=== PATIENT | female | born 1935 | race Caucasian/White ===

== ENCOUNTER 2019-11-06 10:45 | Emergency (ER) | payer OTHER ==
[~2019-11-06] VITALS: Ht 165.1 cm; Wt 91.2 kg
[2019-11-06 11:03] VITALS: BP 169/92
== END 2019-11-06 12:14 | disposition home or self-care (01) ==
LOC: ER 10:45
DX: R60.0 Localized edema (principal); M19.90 Unspecified osteoarthritis, unspecified site; E78.5 Hyperlipidemia, unspecified; I10 Essential (primary) hypertension
CPT/HCPCS: 93971

== ENCOUNTER 2025-08-18 23:39 | Inpatient (IN) | payer OTHER, MEDICAID ==
[~2025-08-18] VITALS: Ht 154.9 cm; Wt 72.7 kg
[2025-08-19] VITALS (7 sets, daily range): BP systolic 140–166; BP diastolic 84–96; PULSE 68–88; RESP 14–18; TEMP 98–100.3; O2SAT 93–97
[2025-08-19] MEDS: SODIUM CHLORIDE 0.9% 1,000 ML IV ONE (01:15)
[2025-08-19 01:35] LABS: Hematocrit 35.1 % (36.0-46.0); Hemoglobin 11.6 g/dL (12.2-16.2); Mean Corpuscular Hemoglobin 30.5 pg (28.0-32.0); Mean Corpuscular Volume 92.4 fL (80.0-100.0); Nucleated Red Blood Cells % 0.0 %
[2025-08-19 01:38] LABS: Chloride 105 mmol/L (98-107); Potassium 3.5 mmol/L (3.5-5.1); Sodium 140 mmol/L (136-145)
[2025-08-19 01:39] LABS: Anion Gap 10 (5-15); Calcium 9.3 mg/dL (8.7-10.4); Carbon Dioxide 25 mmol/L (20-31)
[2025-08-19 01:44] LABS: BUN/Creatinine Ratio 13.8 (10.0-20.0); Blood Urea Nitrogen 11 mg/dL (9-23)
[2025-08-19 01:48] LABS: Glucose 127 mg/dL (74-106)
--- NOTE | 2025-08-19 02:10 | ED.PDOC ---
History of Present Illness HPI Comments 89 y/o F is BIBA for c/c of right hip and knee pain s/p mechanical fall injury. Patient reports on becoming, suddenly, dizzy and falling onto her right side, while entering her garage with the lights off, yesterday evening. Dizziness has since subsided. Denies any chest pain, shortness of breath, or further acute symptoms. REVIEW OF SYSTEMS: General: No fever, no chills, or fatigue HEENT: No sore throat, no earache, no congestion, no neck pain. Cardiac: No chest pain. No palpitations. Lungs: No shortness of breath, no cough. GI: No nausea, no vomiting, no diarrhea, no constipation, no abdominal pain : No dysuria, frequency, or urgency. No hematuria. Musculoskeletal: Right hip and knee pain, no joint swelling, no extremity edema. Skin: No rash, no itching. Neuro: No headache, no dizziness, no weakness PHYSICAL EXAM: General: Awake, alert and oriented. No acute distress. Skin: Skin in warm, dry and intact. Appropriate color for ethnicity. HEENT: The head is normocephalic and atraumatic. Conjunctivae are clear without exudates or hemorrhage. Sclera is non-icteric. EOM are intact. No signs of nystagmus. Eyelids are normal in appearance without swelling or lesions. Oral mucosa is pink and moist Neck: The neck is supple with normal range of motion. No JVD. Cardiac: Heart rate and rhythm are normal. No murmurs, gallops, or rubs are auscultated. Respiratory: No signs of respiratory distress. Lung sounds are clear in all lobes bilaterally without rales, rhonchi, or wheezes. Abdominal: Abdomen is soft, non-tender without distention, guarding or rigidity. Bowel sounds are present and normoactive in all four quadrants. Extremities: Right hip and knee tenderness. She is unable to provide leg onto exam bed. Remaining upper and lower extremities are atraumatic in appearance without deformity or edema. Neurological: The patient is awake, alert and oriented to person, place, and time with normal speech. Speech is clear. There is no facial asymmetry. Psychiatric: Appropriate mood and affect. Good judgement and insight. Chief Complaint: Fall Injury Time Seen by MD: 01:00 Primary Care Provider: CECILLE Reviewed Notes: Nurses Notes, Chassis Wirer Notes, Medications, Allergies Allergies: Coded Allergies: NO KNOWN ALLERGIES (Unverified , 11/06/19) Information Source: Patient, Emergency Med Personnel Mode of Arrival: EMS Severity: Moderate Timing: Hours Duration: Since onset Prehospital treatment: 12 Lead EKG, Accucheck, Marine Insurance Claim Examiner Past Medical History PAST MEDICAL HISTORY: Arthritis, High Lipids, HTN Surgical History: Cholecystectomy, Hysterectomy, Tonsillectomy LUMP ROLLER History: No Pertinent LUMP ROLLER History Family History Family History: Reviewed,noncontributory to illness Social History Smoker: Non-Smoker Alcohol: Denies ETOH Use Drugs: Denies Drug Use Lives In: Home Was a procedure done? Was a procedure done?: No Differential Dx Considerations may include: Fractures, contusions, sprain, musculoskeletal pain, neurovascular injury, among others X-Ray, Labs, Meds, VS Vital Signs Date Time Temp Pulse Resp B/P (MAP) Pulse Ox O2 Delivery O2 Flow Rate FiO2 08/18/25 23:54 98.6 75 18 165/89 95 98.6 Lab Test 08/19/25 02:05 08/19/25 01:18 Range/Units Troponin I High Sensitivity 7 6 </=34 ng/L White Blood Count 11.8 H 4.4-10.8 10^3/uL Red Blood Count 3.79 L 4.0-5.20 10^6/uL Hemoglobin 11.6 L 12.2-16.2 g/dL Hematocrit 35.1 L 36.0-46.0 % Mean Corpuscular Volume 92.4 80.0-100.0 fL Mean Corpuscular Hemoglobin 30.5 28.0-32.0 pg Mean Corpuscular Hemoglobin Concent 33.0 32.0-36.0 g/dL Red Cell Distribution Width 15.2 H 11.8-14.3 % Platelet Count 152 140-450 10^3/uL Mean Platelet Volume 8.4 6.9-10.8 fL Neutrophils (%) (Auto) 87.3 H 37.0-80.0 % Lymphocytes (%) (Auto) 6.7 L 10.0-50.0 % Monocytes (%) (Auto) 5.8 0.0-12.0 % Eosinophils (%) (Auto) 0.1 0.0-7.0 % Basophils (%) (Auto) 0.1 0.0-2.0 % Neutrophils # (Auto) 10.3 H 1.6-8.6 10 ^3/uL Lymphocytes # (Auto) 0.8 0.4-5.4 10 ^3/uL Monocytes # (Auto) 0.7 0-1.3 10 ^3/uL Eosinophils # (Auto) 0 0-0.8 10 ^3/uL Basophils # (Auto) 0 0-0.2 10 ^3/uL Nucleated Red Blood Cells 0.0 % Sodium Level 140 136-145 mmol/L Potassium Level 3.5 3.5-5.1 mmol/L Chloride Level 105 98-107 mmol/L Carbon Dioxide Level 25 20-31 mmol/L Anion Gap 10 5-15 Blood Urea Nitrogen 11 9-23 mg/dL Creatinine 0.80 0.550-1.02 mg/dL Glomerular Filtration Rate Calc 71 >90 mL/min BUN/Creatinine Ratio 13.8 10.0-20.0 Serum Glucose 127 H 74-106 mg/dL Calcium Level 9.3 8.7-10.4 mg/dL B-Type Natriuretic Peptide 92.18 0-100 pg/mL Current Medications Medications (Trade) Dose Ordered Sig/Cristin Route Start Time Stop Time Status Last Admin Sodium Chloride 1,000 ml @ 1,000 mls/hr Q1H ONCE IV 08/19/25 01:15 08/19/25 02:14 DC 08/19/25 01:15 Tramadol HCl (Ultram) 50 mg ONCE ONCE PO 08/19/25 01:15 08/19/25 01:16 DC 08/19/25 01:15 Time of 1ST Reevaluation: 01:30 Reevaluation 1ST: Unchanged Patient Education/Counseling: Treatment Family Education/Counseling: No Family Present SEPSIS Sepsis Screen Date sepsis recognized/suspect: Aug 18, 2025 Time Sepsis recognized/suspect: 2355 Recent Procedure: No On Antibiotic Therapy: No Respiratory Rate >20: No Heart Rate >90: No Temp<36 C (96.8 F) or >38.3 C: No SBP <90 or MAP <65 mmHG: No New Acute Mental Status Change: No Is the patient on CPAP, BIPAP,: No Physician Orders Electrocardigram (08/19/25 01:05) Marine Insurance Claim Examiner (08/19/25 ) Orthostatic Vital Signs (08/19/25 ) Saline Lock (08/19/25 01:05) Fall Precautions Initiated (08/19/25 01:05) Troponin-I Hs (08/19/25 04:05) R Hip Complete Xray (08/19/25 01:05) R Knee 2v Xray (08/19/25 01:05) Vital Signs Date Time Temp Pulse Resp B/P (MAP) Pulse Ox O2 Delivery O2 Flow Rate FiO2 08/18/25 23:54 98.6 75 18 165/89 95 98.6 Laboratory Tests Test 08/19/25 01:18 White Blood Count 11.8 10^3/uL (4.4-10.8) H Medications Medications Dose Ordered Sig/Cristin Route Start Time Stop Time Status Last Admin Dose Admin Sodium Chloride 1,000 ml @ 1,000 mls/hr Q1H ONCE IV 08/19/25 01:15 08/19/25 02:14 DC 08/19/25 01:15 Tramadol HCl 50 mg ONCE ONCE PO 08/19/25 01:15 08/19/25 01:16 DC 08/19/25 01:15 Departure 1 Departure Time of Disposition: 03:14 Impression: Primary Impression: Fracture of right hip Disposition: ADMITTED INPATIENT Condition: Stable Comments MDM: Patient admitted to hospitalist service for further treatment, evaluation and monitoring. Extensive evaluation was performed in attempt to identify or rule out: (See differential diagnosis section) The following tests were ordered, and results were reviewed by me and discussed with patient: (See diagnostic results section) The following test were independently interpreted by me: N/A I reviewed and agreed with the following test results read by other providers: Right knee and hip x-ray I reviewed the following notes from the pt's past medical encounters: N/A Additional information was gathered from interviewing the following independent historians: EMS personnel Decision regarding hospitalization or escalation of hospital level of care: Risks and benefits of admission for further treatment of patient's condition was considered however due to patient's stable condition patient will be discharged to follow up closely or return to care for worsening of condition or inability t o follow up. Critical Care Note Critical Care Time?: No Stability Stability form required: No Heart Score Heart Score: Heart Score Response (Comments) Value History N/A 0 EKG N/A 0 Age N/A 0 Risk Factors N/A 0 Troponin N/A 0 Total 0 I personally scribed for LATONIA MARTINEZ MD ([email or web address]) on 08/19/25 at 02:10. Electronically submitted by Will Hansen ([email or web address]). LATONIA MARTINEZ MD Aug 19, 2025 02:10
--- NOTE | 2025-08-19 03:19 | DVH ---
CLINICAL INDICATION: Right hip pain after fall TECHNIQUE: 2 views XY R HIP COMPLETE XRAY Comparison: None FINDINGS: Mildly comminuted and displaced intertrochanteric fracture with varus angulation and proximal migrati on. Associated soft tissue swelling. No dislocation. Moderate to severe osteoarthrosis. Osteopenia. IMPRESSION: 1. Acute intertrochanteric right femur fracture.
--- NOTE | 2025-08-19 03:20 | DVH ---
CLINICAL INDICATION: Right knee pain after fall TECHNIQUE: 2 views XY R KNEE 2V XRAY Comparison: None FINDINGS: No acute fracture or joint malalignment. Diffuse osteopenia. Severe tricompartmental osteoarthrosis most pronounced in the medial compartment. Small joint effusion with large ossified joint body. Ante rior soft tissue swelling suspected. IMPRESSION: 1. No acute osseous finding of the right knee.
[2025-08-19 03:59] LABS: Urine Protein, UAD Negative (Negative)
[2025-08-19] MEDS ORDERED: ONDANSETRON HCL 4 MG/2 ML VIAL IV PRN (04:00)
[2025-08-19] MEDS ORDERED: DOCUSATE SOD 100 MG CAP PO PRN (04:00)
[2025-08-19] MEDS ORDERED: hydrALAZINE HCL 20 MG/ML VL IV PRN (04:00)
[2025-08-19] MEDS ORDERED: NITROGLYCERIN 0.4 MG SL TAB SL PRN (04:00)
[2025-08-19 04:11] LABS: INR 1.02 (0.9-1.15); Prothrombin Time 10.8 sec (9.3-11.8)
--- NOTE | 2025-08-19 04:59 | DVH ---
CHEST RADIOGRAPH Indication: Dizziness Technique: 1 view Comparison: None FINDINGS: Lines and Tubes: None. Lungs/Pleura: No acute consolidation or pleural abnormality. Mild scarring/ atelectasis in the left lower lung. The appearance of the right sulcus appears related to an elevated hemidiaphragm. Cardiomediastinum: Normal heart size. Other: No acute osseous abnormality. Advanced degenerative changes of the shoulders. IMPRESSION: 1. No acute cardiopulmonary abnormality.
[2025-08-19] MEDS: SODIUM CHLORIDE 0.9% 1,000 ML IV SCH (05:11)
--- NOTE | 2025-08-19 07:06 | ECG ---
[facility] Test Date: 2025-08-19 Test Time: 07:00:34 Pat Name: DAWN GARLAND Department: [facility] ED Patient ID: [id number] Room: 0249 Gender: F Transit Operator: SUSANNA : 1935 Requested By: LATONIA MARTINEZ Order Number: [id number] Reading MD: Oh King Measurements Intervals [place] Rate: 73 P: 3 CA: 154 QRS: -20 QRSD: 136 T: -20 QT: 518 QTc: 571 Interpretive Statements Sinus rhythm Left ventricular hypertrophy Probable anterior infarct, age indeterminate Prolonged QT interval Electronically Signed On 08-19-2025 15:18:54 PDT by Oh King Please click the below link to view image of tracing.
--- NOTE | 2025-08-19 08:22 | DVHHP ---
ADMIT DATE: 08/19/2025 CHIEF COMPLAINT: Coming in after having a mechanical fall with hip pain. HISTORY OF PRESENT ILLNESS: This is an 89-year-old female with significant past medical history for essential hypertension, hyperlipidemia and COPD who presents to the Emergency Room after sustaining a fall at home with a complaint of right hip pain. The patient apparently was letting her dog out from the kitchen into the garage to go to the bathroom. The patient did not turn on the lights. Once stepping into the garage, the patient felt slightly lightheaded, lost her balance and fell to the floor. The patient at that point was unable to get up, was fortunate that her son and grandson were at home and helped her up. EMS was called and the patient was brought in. The patient was found to have right hip intertrochanteric fracture. The patient says that the pain kind of radiates from the knee up into the hip area on the right side. The patient otherwise denies any fevers or chills, chest pain or shortness of breath, cough or phlegm, diarrhea or constipation, bloody or tarry stools, any urinary frequency, urgency or burning sensation. PAST MEDICAL HISTORY: Essential hypertension, hyperlipidemia and COPD. PAST SURGICAL HISTORY: Hysterectomy, cholecystectomy. SOCIAL HISTORY: No tobacco, no alcohol, no illicit drugs. MEDICATIONS AT HOME: Per medical reconciliation. MEDICATION ALLERGIES: No known drug allergies. REVIEW OF SYSTEMS: A 10-point review of systems was covered with the patient and was negative with the exception to what was presented in the history of present illness. PHYSICAL EXAMINATION: VITAL SIGNS: Temperature 98.6, pulse rate of 75, respiratory rate of 18, blood pressure 165/89, pulse oximetry about 95% on room air. GENERAL: Seems to be alert and oriented x4, not in acute distress female lying in bed. HEENT: Normocephalic, atraumatic. Extraocular muscles are intact. Pupils are equally round and reactive to light and accommodations. Mucous membranes are moist. CARDIOVASCULAR: S1, S2 positive. Regular rate and rhythm. No rubs, gallops or murmurs. LUNGS: Seems to be clear to auscultation bilaterally. No wheezing, rhonchi, or rales. ABDOMEN: Seems to be soft, nontender, nondistended. Positive bowel sounds. No guarding, no rebound. EXTREMITIES: Lower extremities: No lower extremity edema, clubbing, or cyanosis. The patient's right leg seems to be shortened and rotated outwards. NEUROLOGIC: Cranial nerve testing 2-12 overall seems to be intact. LABORATORY WORKUP: Shows a white count of 11.8, H and H of 11.6 and 35.1, platelet count of 152,000, neutrophils shift of 87.3. INR of 1.02. Sodium 140, potassium 3.5, chloride 105, carbon dioxide 25, anion gap of 10, BUN of 11, creatinine of 0.80, glucose of 127, calcium 9.3. BNP of 92.18, troponins of 6, 7, and 8. Urinalysis was negative for nitrites, negative for leukocyte esterase, less than 1 wbc. IMAGING: Chest x-ray shows no acute cardiopulmonary abnormality. Right knee x-ray shows no acute osseous findings of the right knee and right hip x-ray was also completed. It shows mild comminuted and displaced intertrochanteric fracture with varus angulation and proximal migration associated with soft tissue swelling. No dislocation. [id number] osteoarthrosis and osteopenia present. DIAGNOSES: * Right femoral intertrochanteric fracture. SECONDARY DIAGNOSES: * Essential hypertension. * COPD. PLAN: The patient will be admitted to Medical-Surgical floor for continuous monitoring and pain control. Consultation with Orthopedic Surgery has been requested by Dr. John Wiggins. Consultation with Cardiology, Dr. Franklin Frazier, Cardiology, has been also requested for preop clearance. The patient will be maintained n.p.o. at this point in time. IV fluid hydration with normal saline at 100 mL an hour has been ordered for the patient. Pain control with Dilaudid 0.25 IV p.r.n. q. 6 hours for severe pain, hydralazine 10 mg IV p.r.n. q. 6 hours for SBPs greater than 150. The patient to have Zofran 4 mg IV p.r.n. for nausea and vomiting. The patient to have daily CBC and BMPs. The patient is to have SCDs to bilateral lower extremities for DVT prophylaxis. Fall risk precautions have been implemented. The patient is a full code. Further recommendations will depend on the patient's hospital progression. Kendall Garner MD LM/ANTHONY/ED TID: [id number] RECEIPT: [id number] MTDD
[2025-08-19] MEDS: ACETAMINOPHEN 500 MG TAB or CAP PO ONE (08:29)
--- NOTE | 2025-08-19 12:13 | DVHINCON2 ---
Consult Note Consult Consult Note History of Present Illness Ms. Teresa Rush was seen today in the emergency department following a ground- level fall at home. The patient was brought to the ER for evaluation of right hip pain and inability to ambulate/WB right hip. Emergency room evaluation included radiographs that demonstrated a right hip fracture. Ortho was consulted. No other Joint pain reported by patient. No LOC, N/V reported by patient. Hx of HTN. Reported. No cancers, DM2, Smoking reported. Last meal 1400 on 08/18/2025(yesterday). Physical Examination General: Awake, alert, in no acute distress. Right Lower Extremity: No open skin lesion, erythema edema, warmth, swelling RLE. Mild Shortening and external rotation noted. Tenderness to palpation over the groin region. Gentle knee range of motion tolerated; no erythema, edema, or open skin lesions observed.MJL TTP(Chronic per pt) Neurovascular status grossly intact distally. Left Lower Extremity: No deformity or tenderness. Pain: Well controlled at this time. Past Medical History Hypertension well controlled on medication. No history of diabetes, anticoagulant use, smoking, cardiac disease, or pulmonary disease as reported by patient. Right hip Xray: Mildly comminuted and displaced intertrochanteric fracture with varus angulation and proximal migration. Associated soft tissue swelling. No dislocation. Moderate to severe osteoarthrosis. Osteopenia. Right knee xray: Severe tricompartmental osteoarthrosis most pronounced in the medial compartment. Small joint effusion with large ossified joint body. Anterior soft tissue swelling suspected. Assessment Right hip intertrochanteric fracture following ground-level fall. Chronic right knee pain, stable. Plan Discussed with patient and obtained consent for surgery. Risks benefits options and alternatives reviewed in depth. Risks include but not exclusive to bleeding infection nerve injury hardware failure nonunion malunion chronic pain blood clots cardiac and pulmonay complications amputation and . Patient understands the morbidity and mortality of hip fractures in the elderly and wishes to proceed with surgery. Patient is currently NPO. Planned procedure: Open reduction internal fixation of right hip fracture Case discussed with information security analyst surgeon , Surgery scheduled with Dr. Wiggins. Continue to monitor vitals and pain control preoperatively. All questions answered Pt and bedside nurse Agrees with above plan Plan discussed with: Patient, Other (bedside nurse) Visit Coding Surgery Date of Service if different f: Aug 19, 2025 Billing Provider: LYNN FELICIANO PAC Surgery Visit Codes: 08662 - INP CONSULT <55 MIN LYNN FELICIANO PAC Aug 19, 2025 12:13 SHERRY WIGGINS MD Aug 20, 2025 06:38
--- NOTE | 2025-08-19 12:27 | DVHINCON2 ---
Date of service: Aug 19, 2025 Referring Physician Litzy Reason for Consultation Cardiac clearance History of Present Illness This is a 89 year old female with a PMH of essential hypertension, hyperlipidemia and COPD who presented to the ED by EMS after sustaining a fall at home with a complaint of right hip pain. The patient apparently was letting her dog out from the kitchen into the garage to go to the bathroom. The patient did not turn on the lights. Once stepping into the garage, the patient felt slightly lightheaded, lost her balance and fell to the floor. The patient at that point was unable to get up. WBC 11.8, platelet count of 152,000, neutrophils shift of 87.3. INR of 1.02. Sodium 140, potassium 3.5, chloride 105, carbon dioxide 25, anion gap of 10, calcium 9.3. BNP 92.18, troponins of 6, 7, and 8. Urinalysis was negative for nitrites, negative for leukocyte esterase, less than 1 WBC Chest x-ray shows NAD. Right knee x-ray shows no acute osseous findings of the right knee. Right hip x-ray shows mild comminuted and displaced intertrochanteric fracture with varus angulation and proximal migration associated with soft tissue swelling. No dislocation. [id number] osteoarthrosis and osteopenia present. Patient was admitted to the hospital. I am asked to consult on this patient. Allergies: Coded Allergies: NO KNOWN ALLERGIES (Unverified , 11/06/19) Current Medications Current Medications Medications (Trade) Dose Ordered Sig/Cristin Route PRN Reason Start Time Stop Time Status Last Admin Sodium Chloride 1,000 ml @ 75 mls/hr [id number] IV 08/19/25 04:00 08/19/25 05:11 Ondansetron HCl (Zofran) 4 mg Q4HP PRN IV NAUSEA / VOMITING 08/19/25 04:00 Docusate Sodium (Colace Capsule) 100 mg BIDPRN PRN PO FOR CONSTIPATION 08/19/25 04:00 Nitroglycerin (Ntrostat Sublingual) 0.4 mg Q5MINP PRN SL FOR CHEST PAIN 08/19/25 04:00 Hydralazine HCl (Apresoline Injection) 10 mg Q6HP PRN IV SBP>150 08/19/25 04:00 Hydromorphone HCl (Dilaudid Injection) 0.25 mg Q6HPRN PRN IV SEVERE PAIN (7-10 PAIN SCALE) 08/19/25 04:00 Review of Systems General: No fever, no chills, or fatigue HEENT: No sore throat, no earache, no congestion, no neck pain. Cardiac: No chest pain. No palpitations. Lungs: No shortness of breath, no cough. GI: No nausea, no vomiting, no diarrhea, no constipation, no abdominal pain : No dysuria, frequency, or urgency. No hematuria. Musculoskeletal: Right hip and knee pain, no joint swelling, no extremity edema. Skin: No rash, no itching. Neuro: No headache, no dizziness, no weakness Vital Signs Vital Signs Date Time Temp Pulse Resp B/P (MAP) Pulse Ox O2 Delivery O2 Flow Rate FiO2 08/19/25 10:00 65 17 141/70 (93) 95 08/19/25 09:00 98.7 98.7 08/19/25 07:30 Room Air* 0 21 Physical Exam GENERAL: Alert and oriented x 3. No acute distress. EYES: PERRL, EOMI. Anicteric. HENT: Moist mucous membranes. LUNGS: Clear to auscultation bilaterally. CARDIOVASCULAR: Regular rate and rhythm. ABDOMEN: Soft, non-tender and non-distended. EXTREMITIES: RLE shortened and rotated outwards. NEUROLOGIC: No focal neurological deficits. SKIN: Warm, dry. Labs/Diagnostic Data Labs Test 08/19/25 04:08 08/19/25 03:48 08/19/25 01:18 Range/Units Troponin I High Sensitivity 8 </=34 ng/L Urine Color Light-yellow Yellow Urine Clarity Clear Clear Urine pH 5.5 5.0-9.0 Urine Specific [place] 1.008 1.001-1.035 Urine Protein Negative Negative Urine Ketones Trace Negative Urine Blood Negative Negative /uL Urine Nitrite Negative Negative Urine Bilirubin Negative Negative Urine Urobilinogen Normal Negative mg/dL Urine Leukocyte Esterase Negative Negative /uL Urine RBC <1 0 - 4 /hpf Urine Microscopic WBC < 1 0-5 /HPF Urine Squamous Epithelial Cells None seen <5 /hpf Urine Bacteria None seen None Seen /hpf Urine Glucose Normal Normal mg/dL White Blood Count 11.8 H 4.4-10.8 10^3/uL Red Blood Count 3.79 L 4.0-5.20 10^6/uL Hemoglobin 11.6 L 12.2-16.2 g/dL Hematocrit 35.1 L 36.0-46.0 % Mean Corpuscular Volume 92.4 80.0-100.0 fL Mean Corpuscular Hemoglobin 30.5 28.0-32.0 pg Mean Corpuscular Hemoglobin Concent 33.0 32.0-36.0 g/dL Red Cell Distribution Width 15.2 H 11.8-14.3 % Platelet Count 152 140-450 10^3/uL Mean Platelet Volume 8.4 6.9-10.8 fL Neutrophils (%) (Auto) 87.3 H 37.0-80.0 % Lymphocytes (%) (Auto) 6.7 L 10.0-50.0 % Monocytes (%) (Auto) 5.8 0.0-12.0 % Eosinophils (%) (Auto) 0.1 0.0-7.0 % Basophils (%) (Auto) 0.1 0.0-2.0 % Neutrophils # (Auto) 10.3 H 1.6-8.6 10 ^3/uL Lymphocytes # (Auto) 0.8 0.4-5.4 10 ^3/uL Monocytes # (Auto) 0.7 0-1.3 10 ^3/uL Eosinophils # (Auto) 0 0-0.8 10 ^3/uL Basophils # (Auto) 0 0-0.2 10 ^3/uL Nucleated Red Blood Cells 0.0 % Prothrombin Time 10.8 9.3-11.8 sec Prothrombin Time INR 1.02 0.9-1.15 Sodium Level 140 136-145 mmol/L Potassium Level 3.5 3.5-5.1 mmol/L Chloride Level 105 98-107 mmol/L Carbon Dioxide Level 25 20-31 mmol/L Anion Gap 10 5-15 Blood Urea Nitrogen 11 9-23 mg/dL Creatinine 0.80 0.550-1.02 mg/dL Glomerular Filtration Rate Calc 71 >90 mL/min BUN/Creatinine Ratio 13.8 10.0-20.0 Serum Glucose 127 H 74-106 mg/dL Calcium Level 9.3 8.7-10.4 mg/dL B-Type Natriuretic Peptide 92.18 0-100 pg/mL Assessment Right hip intertrochanteric fracture. Right femoral intertrochanteric fracture. Essential hypertension. COPD. Plan/Recommendation I agree with your ongoing assessment and care of plan. The patient is cardiac clear for surgery. STAT echocardiogram. IV Hydralazine for SBP >150. Dilaudid for pain management. Nitro SL. Additional plan as per the hospital course. A total of 45 minutes was spent reviewing the patient record, examining the patient, making a diagnostic and therapeutic plan, discussing this plan with medical personnel, following up on diagnostic studies and following the patient for clinical stability excluding any and all procedures. At least 50% of this t flor was spent in direct, [id number] contact. Plan discussed with: Patient BENNY MERCEDES MD Aug 19, 2025 12:27
[2025-08-19] MEDS: HYDROmorphone HCL 2 MG/ML VL/or syr IV PRN (17:57)
[2025-08-20] VITALS (7 sets, daily range): BP systolic 100–142; BP diastolic 67–91; PULSE 69–101; RESP 10–18; TEMP 97.5–99.5; O2SAT 93–97
[2025-08-20] MEDS: ceFAZolin 2 GM/D5W50ml 50 ML IV ONE (06:49)
[2025-08-20] MEDS: BUPIVACAINE 0.25% INJ 50ML VIAL ONE (06:54)
--- NOTE | 2025-08-20 06:57 | DVHOP2 ---
Operative Report - 2 Report Details Date: 08/20/25 Preop Diagnosis: Right hip intertrochanter fracture Postop Diagnosis: as above Surgeon: John Wiggins MD Cartography Technician: Sidney HAMMONDS Anesthesiologist: Jarett SHETH Anesthesia: Regional Implant: ITS Short femoral nail with set screw/distal locking screw/lag screw Consent: The patient was informed of the risks and benefits of the procedure. These include but are not limited to complications of anesthesia, postoperative infection, incomplete relief of symptoms, recurrence of symptoms, damage to blood vessels, nerves and tendons, deep venous thrombosis, pulmonary embolism and possible need for repeat surgery in the future. Estimated Blood Loss: 100 cc Name of Procedure Performed 1. Open reduction internal fixation of right hip fracture; 2. Intraop fluoroscopy Procedure Details Procedure Details: The patient was brought to the operating room and placed supine on a fracture table. General anesthesia was induced, and the right lower extremity was prepped and draped in the usual sterile fashion. Preoperative antibiotics were administered. Closed reduction was attempted under fluoroscopic guidance. Satisfactory alignment was achieved. A longitudinal incision was made over the greater trochanter. Dissection was carried down through the subcutaneous tissue to the fascia juan, which was incised in line with the skin incision. The gluteus medius was split in line with its fibers to expose the entry point at the tip of the greater trochanter. A guidewire was inserted into the medullary canal under fluoroscopic guidance. The entry point and trajectory were confirmed in both AP and lateral views. The proximal femur was reamed, and the appropriate length and diameter intramedullary nail was selected and inserted over the guidewire. The nail was advanced to the appropriate depth. Attention was then turned to placement of the lag screw. Under fluoroscopic guidance, a guide pin was placed into the femoral head and neck, ensuring appropriate position in both planes. The canal was reamed, and the lag screw was inserted to the desired depth, achieving good purchase in the femoral head. The set screw was tightened to prevent rotation. Distal interlocking screw was placed using the targeting device and confirmed with fluoroscopy. Final images demonstrated satisfactory reduction and hardware position, with roman catholic of length, alignment, and rotation. The wound was irrigated with copious normal saline. Hemostasis was achieved. The fascia juan was closed with absorbable suture, followed by subcutaneous tissue and skin in standard layered fashion. Sterile dressings were applied. The patient was awakened from anesthesia and transferred to the recovery room in stable condition. Condition Good Disposition Still a Patient JOHN WIGGINS MD Aug 20, 2025 06:57
[2025-08-20] MEDS: BUPIVACAINE 0.75% INJ 10ML MPV SDV IJ ONE (07:01)
[2025-08-20] MEDS: BUPIVACAINE HCL 50 ML ONE (07:02)
[2025-08-20] MEDS ORDERED: MIDAZOLAM HCL 2MG/2ML 2ml VIAL (1mg/ml) ONE (07:06)
[2025-08-20] MEDS ORDERED: fentaNYL CITRATE 100 MCG/2 ML VL ONE (07:06)
[2025-08-20 07:11] LABS: Hematocrit 33.3 % (36.0-46.0); Hemoglobin 11.1 g/dL (12.2-16.2); Mean Corpuscular Hemoglobin 31.1 pg (28.0-32.0); Mean Corpuscular Volume 93.1 fL (80.0-100.0); Nucleated Red Blood Cells % 0.0 %
[2025-08-20 07:16] LABS: Chloride 107 mmol/L (98-107); Sodium 142 mmol/L (136-145)
[2025-08-20 07:17] LABS: Anion Gap 9 (5-15); Carbon Dioxide 26 mmol/L (20-31)
[2025-08-20 07:22] LABS: BUN/Creatinine Ratio 11.0 (10.0-20.0)
[2025-08-20 07:23] LABS: Blood Urea Nitrogen 9 mg/dL (9-23); Calcium 8.3 mg/dL (8.7-10.4); Glucose 118 mg/dL (74-106); Potassium 3.5 mmol/L (3.5-5.1)
[2025-08-20] MEDS ORDERED: PROPOFOL 10 MG/ML 20 ML IV ONE (07:31)
[2025-08-20] MEDS ORDERED: MORPHINE SULFATE 4 MG/ML SYR/VIAL IV PRN (08:15)
[2025-08-20] MEDS ORDERED: hydrALAZINE HCL 20 MG/ML VL IV PRN (08:15)
[2025-08-20] MEDS ORDERED: HYDROmorphone HCL 2 MG/ML VL/or syr IV PRN (08:15)
[2025-08-20] MEDS ORDERED: MIDAZOLAM HCL 2MG/2ML 2ml VIAL (1mg/ml) IV PRN (08:15)
[2025-08-20] MEDS: BUPIVACAINE 0.5% P/F INJ 10 ML VIAL ONE (08:25)
[2025-08-20] MEDS: ONDANSETRON HCL 4 MG/2 ML VIAL IV PRN (08:28)
[2025-08-20] MEDS: ONDANSETRON HCL 4 MG/2 ML VIAL ONE (08:44)
--- NOTE | 2025-08-20 10:18 | DVH ---
CLINICAL INDICATION: ORIF RT HIP TECHNIQUE: 4 radiographic views of the right hip were obtained. Comparison: XY R HIP COMPLETE XRAY on DOS: 08/19/25 FINDINGS/IMPRESSION: 4 images of an open reduction internal fixation of the right hip repair is examined. Total fluoro time 68.1 seconds Cumulative dose: 7.96 mGy
--- NOTE | 2025-08-20 10:20 | DVH ---
C-ARM FLUOROSCOPY: PROCEDURE: ORIF right hip repair FLUOROSCOPY TIME: 60.1 seconds Air Kerma: 7.96 mgy FINDINGS: Spot intraoperative C arm radiographs demonstrating ORIF right hip repair. IMPRESSION: 1. Please refer to surgical report for detailed findings.
--- NOTE | 2025-08-20 14:45 | DVHDS2 ---
Discharge Summary Date of Admission Aug 19, 2025 at 03:53 Date of Discharge: Aug 20, 2025 Admitting Diagnosis Right Femoral intertrochanteric Fracture Wounds: Right hip wound from ORIF Labs/Diagnostic Data: Laboratory Results Test 08/20/25 05:51 08/19/25 04:08 08/19/25 03:48 08/19/25 01:18 White Blood Count 5.9 10^3/uL (4.4-10.8) Red Blood Count 3.58 10^6/uL (4.0-5.20) Hemoglobin 11.1 g/dL (12.2-16.2) Hematocrit 33.3 % (36.0-46.0) Mean Corpuscular Volume 93.1 fL (80.0-100.0) Mean Corpuscular Hemoglobin 31.1 pg (28.0-32.0) Mean Corpuscular Hemoglobin Concent 33.4 g/dL (32.0-36.0) Red Cell Distribution Width 15.2 % (11.8-14.3) Platelet Count 117 10^3/uL (140-450) Mean Platelet Volume 8.7 fL (6.9-10.8) Neutrophils (%) (Auto) 69.4 % (37.0-80.0) Lymphocytes (%) (Auto) 18.2 % (10.0-50.0) Monocytes (%) (Auto) 11.0 % (0.0-12.0) Eosinophils (%) (Auto) 1.1 % (0.0-7.0) Basophils (%) (Auto) 0.3 % (0.0-2.0) Neutrophils # (Auto) 4.1 10 ^3/uL (1.6-8.6) Lymphocytes # (Auto) 1.1 10 ^3/uL (0.4-5.4) Monocytes # (Auto) 0.6 10 ^3/uL (0-1.3) Eosinophils # (Auto) 0.1 10 ^3/uL (0-0.8) Basophils # (Auto) 0 10 ^3/uL (0-0.2) Nucleated Red Blood Cells 0.0 % Sodium Level 142 mmol/L (136-145) Potassium Level 3.5 mmol/L (3.5-5.1) Chloride Level 107 mmol/L (98-107) Carbon Dioxide Level 26 mmol/L (20-31) Anion Gap 9 (5-15) Blood Urea Nitrogen 9 mg/dL (9-23) Creatinine 0.82 mg/dL (0.550-1.02) Glomerular Filtration Rate Calc 69 mL/min (>90) BUN/Creatinine Ratio 11.0 (10.0-20.0) Serum Glucose 118 mg/dL (74-106) Calcium Level 8.3 mg/dL (8.7-10.4) Troponin I High Sensitivity 8 ng/L (</=34) Urine Color Light-yellow (Yellow) Urine Clarity Clear (Clear) Urine pH 5.5 (5.0-9.0) Urine Specific Jay 1.008 (1.001-1.035) Urine Protein Negative (Negative) Urine Ketones Trace (Negative) Urine Blood Negative /uL (Negative) Urine Nitrite Negative (Negative) Urine Bilirubin Negative (Negative) Urine Urobilinogen Normal mg/dL (Negative) Urine Leukocyte Esterase Negative /uL (Negative) Urine RBC <1 /hpf (0 - 4) Urine Microscopic WBC < 1 /HPF (0-5) Urine Squamous Epithelial Cells None seen /hpf (<5) Urine Bacteria None seen /hpf (None Seen) Urine Glucose Normal mg/dL (Normal) Prothrombin Time 10.8 sec (9.3-11.8) Prothrombin Time INR 1.02 (0.9-1.15) B-Type Natriuretic Peptide 92.18 pg/mL (0-100) Other Laboratory Tests 08/20/25 05:51 Brief Hx & Hospital Course: This is a 89 YO female who sustained a fall after having a dizziness spell and landing on her right hip sustaining right femur intertrochanteric fracture. Patient was seen by cardiology and had echocardiogram and cleared for surgery. Patient underwent ORIF of the right femur intertrochanteric fracture without any intraoperative complications. Patient was able to stand with physical therapy and walk with a walker post operative. Patient is agreeable to go to SNF for further rehab. Patient will be recommended to have Lovenox 40mg SC daily starting tomorrow for DVT prophy at SNF. Consults/Reason for consult Ortho, Dr. You Wiggins, Ortho Cardio, Dr. Dulce Frazier, Pre Op Clearance Operations or Procedures Open Reduction Internal Fixation of the Right Femoral Intertrochanteric Fracture Condition at Discharge: Good Final Diagnosis/Problems List Right intertrochanter fracture status post ORIF Secondary Diagnosis: Essential HTN COPD [facility]position[facility] Discharge Instruct/Medications Diet: Regular Activity: See Comment Activity comment: weight brearing as toleated with walker Follow Up/Referral: PCP follow 10-14 days Orthopedic follow up in the 2 weeks. Wound Care as needed by Care Home. Patient to have CBC completed in 2 days for Platelet monitoring. Medications: Patient to be placed on Lovenox 40mg SC daily at SNF for DVT prophy. Discharge Statement: "Patient was advised to return to the ER or call 911 if any headaches, dizziness, shortness of breath, chest pain, abdominal pain, bleeding, fevers, or worsening of medical condition. Patient was counseled about treatment plan, medications, possible side effects, patientverbalized understanding. All questions were answered to the best of my ability. This discharge took greater then 30 minutes in planning, reviewing documentation, counseling the patient, and discussing with other team members." ASSESSMENT ASSESSMENT Assessment Right intertrochanter fracture status post ORIF VANESSA LEW MD Aug 20, 2025 14:45
[2025-08-20] MEDS: ceFAZolin 1GM/50ML 50 ML IV SCH (15:51)
--- NOTE | 2025-08-20 21:52 | DVHSR ---
APPROVED REPORT EXAM: Two-dimensional and M-mode echocardiogram with Doppler and color Doppler. Blood Pressure: 132/73 mmHg INDICATION Pre-Op RISK FACTORS Height: 5'1", Weight: 149 DIMENSIONS LVDd4.7 (3.8-5.7cm)LA (2D)4.0 (1.9-4.0cm)Aortic Root3.2 (2.0-3.7cm) LVDs3.4 (2.5-4.0cm)LA (MM) (1.9-4.0cm)Aortic Cusp Exc2.0 (1.5-2.0cm) EF (%) 53.0 (55-70%)Rt. Atrium (1.9-4.0cm)Asc. Aorta3.8 cm IVSd1.3 (0.7-1.1cm)RV (D) (1.8-2.4cm) Mitral Valve MitralMitral Stenosis E/A ratio0.02D MVAcm2 Aortic Valve Aortic ValveAortic Stenosis V11.20m/[place] Mean GR.5mmHg V21.50m/[place] Peak GR.9mmHg LVOT Diameter2.2 (1.8-2.4cm)Doppler AVA3.04cm2 Pulmonic Valve V20.95m/s Tricuspid Valve TR Velocity2.52m/s [id number] Other Information Quality : Technically LimitedRhythm : Technically limited study due to patient position. Pt unable to move. Conclusion MODERATE DEGREE LVH AND MODERATE DEGREE LV DIASTOLIC DYSFUNCTION LV EF IS 65% NORMAL VALVES NO EFFUSION SLIGHTLY DILATED LA
--- NOTE | 2025-08-20 23:20 | DVHPN2 ---
Progress Note - Dictate Date Seen: Aug 20, 2025 Medical Necessity Reason Pt with a Central, PICC or Fol: No Subjective Patient was seen and evaluated in follow up. Echocardiogram shows LV EF of 65%. Patient is s/p open reduction internal fixation of right hip fracture by Dr. Wiggins. Patient complains of pain at the surgical site vital signs Vital Sign Date Time Temp Pulse Resp B/P (MAP) Pulse Ox O2 Delivery O2 Flow Rate FiO2 08/20/25 12:56 88 14 142/88 08/20/25 08:57 97.8 94 97.8 08/20/25 08:10 Nasal Cannula 3.0 97 Total Intake and Output 08/19/25 08/19/25 08/20/25 15:00 23:00 07:00 Intake Total 280 ml 295 ml Output Total 1600 ml 700 ml Balance -1320 ml -405 ml medications Current Medications Medications Dose Ordered Sig/Cristin Route Start Time Stop Time Status Last Admin Dose Admin Sodium Chloride 1,000 ml @ 75 mls/hr [id number] IV 08/19/25 04:00 08/19/25 17:20 75 MLS/HR Ondansetron HCl 4 mg Q4HP PRN IV 08/19/25 04:00 Docusate Sodium 100 mg BIDPRN PRN PO 08/19/25 04:00 Nitroglycerin 0.4 mg Q5MINP PRN SL 08/19/25 04:00 Hydralazine HCl 10 mg Q6HP PRN IV 08/19/25 04:00 Hydromorphone HCl 0.25 mg Q6HPRN PRN IV 08/19/25 04:00 08/20/25 12:26 0.25 MG Cefazolin Sodium 50 ml @ 100 mls/hr Q8H IV 08/20/25 15:00 08/21/25 07:29 objective GENERAL: Alert and oriented x 3. No acute distress. EYES: PERRL, EOMI. Anicteric. HENT: Moist mucous membranes. LUNGS: Clear to auscultation bilaterally. CARDIOVASCULAR: Regular rate and rhythm. ABDOMEN: Soft, non-tender and non-distended. EXTREMITIES: RLE shortened and rotated outwards. NEUROLOGIC: No focal neurological deficits. SKIN: Warm, dry. laboratory and microbiology Laboratory Tests 08/20/25 05:51 Test 08/20/25 05:51 Range/Units Serum Glucose 118 H 74-106 mg/dL Problem List Right hip intertrochanteric fracture. Right femoral intertrochanteric fracture. Essential hypertension. COPD. Assessment/Plan Continued all current supportive medical care. IV antibiotics as ordered. IV Hydralazine for SBP >150. Dilaudid for pain management. Nitro SL. Additional plan as per the hospital course. Plan discussed with: Patient BENNY MERCEDES MD Aug 20, 2025 15:23
--- NOTE | 2025-09-09 08:50 | ECG ---
[facility] Test Date: 2025-08-19 Test Time: 10:41:27 Pat Name: DAWN GARLAND Department: [facility] ED Patient ID: [id number] Room: 0249 B Gender: F Store Sales Leader: AMBROCIO : 1935 Requested By: LATONIA MARTINEZ Order Number: [id number] Reading MD: Oh King Measurements Intervals [place] Rate: 65 P: 0 MI: 170 QRS: -39 QRSD: 133 T: 8 QT: 416 QTc: 433 Interpretive Statements Sinus rhythm Left bundle branch block Baseline wander in lead(s) I,aVL Electronically Signed On 09-10-2025 17:26:06 PST by Oh King Please click the below link to view image of tracing.
== END 2025-08-20 17:40 | DRG 482 ==
LOC: EDBD 23:39 → ER 23:39 → OVERFLOW 08-19 03:53 → EAST 08-19 14:23
PROVIDERS: ADMIT Hospitalist; ATTEND Hospitalist
PROC: 0QS636Z Reposition Right Upper Femur with Intramedullary Internal Fixation Device, Percutaneous Approach (ICD-10-PCS; principal; 2025-08-20 07:00)
DX: S72.141A Displaced intertrochanteric fracture of right femur, initial encounter for closed fracture (principal); E78.5 Hyperlipidemia, unspecified; J44.9 Chronic obstructive pulmonary disease, unspecified; I10 Essential (primary) hypertension; G89.29 Other chronic pain; M85.80 Other specified disorders of bone density and structure, unspecified site; W01.0XXA Fall on same level from slipping, tripping and stumbling without subsequent striking against object, initial encounter; Y92.009 Unspecified place in unspecified non-institutional (private) residence as the place of occurrence of the external cause; Z90.710 Acquired absence of both cervix and uterus; Z90.49 Acquired absence of other specified parts of digestive tract; Y93.89 Activity, other specified; Y99.8 Other external cause status
CPT/HCPCS: 36415; 71045; 73502; 73560; 76000; 80048; 81001; 83880; 84484; 85025; 85610; 86850; 86900; 86901; 93005; 93306; 96360; 97163; G0378; J1100; J2250; J2405; J2704; J3490